=== PATIENT | male | born 1995 | race Caucasian/White ===

== ENCOUNTER 2021-02-10 06:57 | Emergency (ER) | payer OTHER ==
[~2021-02-10] VITALS: Ht 180.3 cm; Wt 87.5 kg
--- NOTE | 2021-02-10 07:14 | NUR ---
INITINAL CONTACT PT W/ C/O I'm having COVID symptoms." PATIENT REPORTS HE STARTED FEELING ILL YESTERDAYWITH FEVER, BODY ACHES, COUGH, SORE THROAT, N/V/D, AND CONGESTION. NO KNOWN SICK CONTACTS, 1ST PFIZER VACCINE 4 DAYS AGO. ERVIN ONEAL TO BEDSIDE FOR EVALUATION. PT TO ROOM WITH STEADY GAIT. POSTIONED TO COMFORT IN BED. ATTACHED TO MONITORS. VSS. ROME.
[2021-02-10] MEDS ORDERED: ONDANSETRON 2MG/ML, 2ML ONE (07:28)
[2021-02-10] MEDS ORDERED: ACETAMINOPHEN 500 MG TABLET ONE (07:28)
[2021-02-10] MEDS ORDERED: ONDANSETRON 2MG/ML, 2ML IVPush ONE (07:30)
[2021-02-10] MEDS ORDERED: ACETAMINOPHEN 500 MG TABLET PO ONE (07:30)
[2021-02-10] MEDS ORDERED: SODIUM CHLORIDE 0.9% 1,000ML IVBOLUS ONE (07:30)
[2021-02-10 07:43] LABS: BASOPHILS % (AUTO) 0 % (0-1); EOSINOPHILS % (AUTO) 0 % (1-7); LYMPHOCYTES % (AUTO) 11 % (22-44); MEAN CORPUSCULAR HEMOGLOBIN 30.8 pg (27.5-34.5); MEAN PLATELET VOLUME 9.2 fL (7.4-10.4); MONOCYTES % (AUTO) 17 % (2-9); NEUTROPHILS % (AUTO) 71 % (42-75); PLATELET COUNT 189 x10^3/uL (130-400); RED BLOOD COUNT 4.42 x10^6/uL (4.38-5.82); RED CELL DISTRIBUTION WIDTH 13.3 % (9.4-14.8)
[2021-02-10 08:34] LABS: ALBUMIN 3.6 g/dL (3.4-5.0); ANION GAP 7 mmol/L (5-15); CALCIUM 8.5 mg/dL (8.5-10.1); CHLORIDE 107 mmol/L (98-107)
[2021-02-10 09:16] VITALS: BP 106/43
--- NOTE | 2021-02-10 09:31 | NUR ---
Patientgiven discharge instructions and they have confirmed that they understand the instructions. Patient ambulatory with steady gait. NAD, all questions answered appropriately, denies additional needs at this time. No personal belongings left in room after discharge.
== END 2021-02-10 09:32 | disposition home or self-care (01) ==
LOC: ED 08:47
DX: K08.89 Other specified disorders of teeth and supporting structures (principal); B34.9 Viral infection, unspecified; R00.1 Bradycardia, unspecified; R10.9 Unspecified abdominal pain
CPT/HCPCS: 36415; 71045; 80048; 82040; 85025; 93005; 96361; 96374; 99285; J2405; J7030